=== PATIENT | female | born 1970 | race African-American/Black ===

== ENCOUNTER 2017-02-08 18:33 | Emergency (ER) | payer BC, MEDICAID, OTHER ==
[~2017-02-08] VITALS: Ht 170.2 cm; Wt 140.0 kg
[2017-02-08] MEDS ORDERED: IBUPROFEN 600MG TABLET PO ONE (21:45)
[2017-02-08 23:40] VITALS: BP 148/77
== END 2017-02-08 23:40 | disposition home or self-care (01) ==
LOC: ER 21:39
DX: S90.31XA Contusion of right foot, initial encounter (principal); L03.031 Cellulitis of right toe; X58.XXXA Exposure to other specified factors, initial encounter; Y93.89 Activity, other specified; Y92.89 Other specified places as the place of occurrence of the external cause; Y99.8 Other external cause status
CPT/HCPCS: 73660; 99283